=== PATIENT | male | born 1995 | race Caucasian/White ===

== ENCOUNTER 2018-09-11 12:31 | Emergency (ER) | payer BC ==
[2018-09-11] MEDS ORDERED: TORAdol 30 mg Injection IV ONE (12:43)
--- NOTE | 2018-09-11 12:48 | ERPHSYRPT ---
- History of Present Illness Time Seen by Provider: 09/11/18 12:35 Historian: patient Exam Limitations: no limitations Patient Subjective Stated Complaint: PT HERE FOR COUGH FOR 3 DAYS, NO FEVER, AND PAIN TO RIGHT RIB AREA THAT IS WORSE WITH MOVEMENT OR COUGH,PRODUCTIVE YELLOW Triage Nursing Assessment: PT ALERT, WALKED IN, RESP EASY, NO DISTRESS, ABD SOFT Physician History: Pt has been c/o congestion, productive cough x 3 weeks, developed left sided chest pain this morning, denies fever, chills, nausea, vomiting, diarrhea, sore throat other complaints. Timing/Duration: hour(s) (4) Activities at Onset: none Quality: sharpness Location: other (left anterior chest) Chest Pain Radiation: no radiation Severity of Pain-Max: moderate Severity of Pain-Current: moderate Modifying Factors: Improves With: nothing Associated Symptoms: cough Prior Chest Pain/Cardiac Workup: no prior chest pain Nitro Today/Relief: no nitro taken today Aspirin Treatment Today: no aspirin today Allergies/Adverse Reactions: No Known Drug Allergies Allergy (Unverified 09/11/18 12:38) Hx Influenza Vaccination/Date Given: No Hx Pneumococcal Vaccination/Date Given: No Immunizations Up to Date: Yes - Review of Systems Constitutional: No Symptoms Eyes: No Symptoms Ears, Nose, & Throat: No Symptoms Respiratory: Cough Cardiac: Chest Pain Abdominal/Gastrointestinal: No Symptoms Musculoskeletal: No Symptoms Skin: No Symptoms Neurological: No Symptoms All Other Systems: Reviewed and Negative - Past Medical History Pertinent Past Medical History: No - Past Surgical History Past Surgical History: Yes Other Surgical History: THUMB SURGERT - Social History Smoking Status: Current every day smoker Exposure to second hand smoke: Yes Drug Use: none Patient Lives Alone: No - Nursing Vital Signs Nursing Vital Signs: Initial Vital Signs Temperature 98.7 F 09/11/18 12:33 Pulse Rate 89 09/11/18 12:33 Respiratory Rate 83 H 09/11/18 12:33 Blood Pressure 133/79 09/11/18 12:33 O2 Sat by Pulse Oximetry 100 09/11/18 12:33 Pain Scale Pain Intensity 5 - Physical Exam General Appearance: no apparent distress Eye Exam: eyes nml inspection Ears, Nose, Throat Exam: normal ENT inspection, pharynx normal, moist mucous membranes Neck Exam: normal inspection, non-tender, supple, No JVD Respiratory Exam: normal breath sounds, lungs clear, airway intact, No chest tenderness Cardiovascular Exam: regular rate/rhythm, normal heart sounds, normal peripheral pulses, No murmur Gastrointestinal/Abdomen Exam: soft, normal bowel sounds, No tenderness, No distention, No mass, No guarding, No rebound Back Exam: normal inspection, No CVA tenderness Extremity Exam: normal inspection, No calf tenderness, No linda's sign Neurologic Exam: alert, oriented x 3, normal mood/affect Skin Exam: normal color, warm, dry, No rash Lymphatic Exam: No adenopathy SpO2 Interpretation: normal SpO2: 100 O2 Delivery: Room Air - Course Nursing assessment & vital signs reviewed: Yes EKG Interpreted by Me: RATE (74/min), Right [place] Deviation, NORMAL INTERVALS, Right Bundle Branch Block, Non-specific ST Changes, Other (Ekg(repeat) 14:55 NSR. unchanged.) - Radiology Exams Chest X-ray Interpretation: Reviewed by me, Negative Ordered Tests: Active Orders 24 hr Category Date Time Status EKG-ER Only STAT Care 09/11/18 12:43 Active EKG-ER Only STAT Care 09/11/18 14:47 Active IV Insertion STAT Care 09/11/18 12:41 Active CHEST 2 VIEWS (PA AND LAT) Stat Exams 09/11/18 13:05 Completed CBC W DIFF Stat Lab 09/11/18 12:50 Completed CMP Stat Lab 09/11/18 12:50 Completed D-DIMER QUANTITATION Stat Lab 09/11/18 13:51 Completed MAGNESIUM Stat Lab 09/11/18 12:50 Completed NT PRO BNP Stat Lab 09/11/18 12:50 Completed TROPONIN Q3H Lab 09/11/18 12:50 Completed TROPONIN Q3H Lab 09/11/18 15:00 Completed TROPONIN Q3H Lab 09/11/18 15:00 Ordered TROPONIN Q3H Lab 09/11/18 18:00 Ordered TROPONIN Q3H Lab 09/11/18 18:45 Ordered TROPONIN Q3H Lab 09/11/18 21:00 Ordered TROPONIN Q3H Lab 09/11/18 21:45 Ordered TROPONIN Q3H Lab 09/12/18 00:45 Ordered Urine Triage Profile Stat Lab 09/11/18 13:51 Completed Medication Summary Discontinued Medications Generic Name Dose Route Start Last Admin Trade Name Freq PRN Reason Stop Dose Admin Ketorolac Tromethamine 30 mg 09/11/18 12:43 09/11/18 12:52 Toradol 30 Mg Injection IV 09/11/18 12:44 30 mg STAT ONE Administration Ketorolac Tromethamine Confirm 09/11/18 12:51 Toradol 30 Mg Injection Administered 09/11/18 12:52 Dose 30 mg .ROUTE .STK-MED ONE Lab/Rad Data: Laboratory Result Diagrams 09/11/18 12:50 09/11/18 12:50 Laboratory Results 09/11/18 09/11/18 09/11/18 Range/Units 15:00 13:51 13:51 WBC (4.0-10.5) K/mm3 RBC (4.1-5.6) M/mm3 Hgb (12.5-18.0) gm/dl Hct (42-50) % MCV (78-100) fl MCH (26-32) pg MCHC (32-36) g/dl RDW (11.5-14.0) % Plt Count (150-450) K/mm3 MPV (6-9.5) fl Gran % (36.0-66.0) % Eos # (Auto) (0-0.5) Absolute Lymphs (auto) (1.0-4.6) Absolute Monos (auto) (0.0-1.3) Lymphocytes % (24.0-44.0) % Monocytes % (0.0-12.0) % Eosinophils % (0.00-5.0) % Basophils % (0.0-0.4) % Absolute Granulocytes (1.4-6.9) Basophils # (0-0.4) D-Dimer < 215 L (215-500) ng/mL Sodium (137-145) mmol/L Potassium (3.5-5.1) mmol/L Chloride (98-107) mmol/L Carbon Dioxide (22-30) mmol/L Anion Gap (5-15) MEQ/L BUN (9-20) mg/dL Creatinine (0.66-1.25) mg/dL Estimated GFR ML/MIN Glucose (74-106) mg/dL Calcium (8.4-10.2) mg/dL Magnesium (1.6-2.3) mg/dL Total Bilirubin (0.2-1.3) mg/dL AST (17-59) U/L ALT (0-50) U/L Alkaline Phosphatase (38-126) U/L Troponin I < 0.012 (0.000-0.034) ng/mL NT-Pro-B Natriuret Pep (0-450) pg/mL Serum Total Protein (6.3-8.2) g/dL Albumin (3.5-5.0) g/dL Urine Opiates Level NEGATIVE (NEGATIVE) Ur Methadone NEGATIVE (NEGATIVE) Urine Barbiturates NEGATIVE (NEGATIVE) Ur Phencyclidine (PCP) NEGATIVE (NEGATIVE) Urine Amphetamine NEGATIVE (NEGATIVE) U Benzodiazepine Level NEGATIVE (NEGATIVE) Urine Cocaine NEGATIVE (NEGATIVE) Urine Marijuana (THC) NEGATIVE (NEGATIVE) 09/11/18 09/11/18 09/11/18 Range/Units 12:50 12:50 12:50 WBC 8.9 (4.0-10.5) K/mm3 RBC 5.07 (4.1-5.6) M/mm3 Hgb 15.2 (12.5-18.0) gm/dl Hct 44.9 (42-50) % MCV 88.6 (78-100) fl MCH 30.0 (26-32) pg MCHC 33.9 (32-36) g/dl RDW 13.1 (11.5-14.0) % Plt Count 216 (150-450) K/mm3 MPV 12.0 H (6-9.5) fl Gran % 69.0 H (36.0-66.0) % Eos # (Auto) 0.06 (0-0.5) Absolute Lymphs (auto) 1.95 (1.0-4.6) Absolute Monos (auto) 0.73 (0.0-1.3) Lymphocytes % 21.9 L (24.0-44.0) % Monocytes % 8.2 (0.0-12.0) % Eosinophils % 0.7 (0.00-5.0) % Basophils % 0.2 (0.0-0.4) % Absolute Granulocytes 6.13 (1.4-6.9) Basophils # 0.02 (0-0.4) D-Dimer (215-500) ng/mL Sodium 140 (137-145) mmol/L Potassium 4.0 (3.5-5.1) mmol/L Chloride 103 (98-107) mmol/L Carbon Dioxide 28 (22-30) mmol/L Anion Gap 12.9 (5-15) MEQ/L BUN 11 (9-20) mg/dL Creatinine 0.91 (0.66-1.25) mg/dL Estimated GFR > 60.0 ML/MIN Glucose 72 L (74-106) mg/dL Calcium 9.6 (8.4-10.2) mg/dL Magnesium 2.0 (1.6-2.3) mg/dL Total Bilirubin 0.70 (0.2-1.3) mg/dL AST 26 (17-59) U/L ALT 23 (0-50) U/L Alkaline Phosphatase 81 (38-126) U/L Troponin I < 0.012 (0.000-0.034) ng/mL NT-Pro-B Natriuret Pep 20.1 (0-450) pg/mL Serum Total Protein 7.7 (6.3-8.2) g/dL Albumin 4.6 (3.5-5.0) g/dL Urine Opiates Level (NEGATIVE) Ur Methadone (NEGATIVE) Urine Barbiturates (NEGATIVE) Ur Phencyclidine (PCP) (NEGATIVE) Urine Amphetamine (NEGATIVE) U Benzodiazepine Level (NEGATIVE) Urine Cocaine (NEGATIVE) Urine Marijuana (THC) (NEGATIVE) - Progress Progress: improved Air Movement: good Progress Note: 09/11/18 15:10 Pt states, pain is almost completely resolved after Toradol, painful only upon movement of the shoulder or applying pressure to the left parasternal area. We discussed his findings, cardiac pain unlikely, he is being discharged to rest x 1-2 days, and apply moist heat to painfulm ribs and follow up with his physician in 3-4 days. Blood Culture(s) Obtained: No Antibiotics given: No Counseled pt/family regarding: lab results, diagnosis, need for follow-up, rad results - Departure Departure Disposition: Home Clinical Impression: Chest pain Qualifiers: Chest pain type: unspecified Qualified Code(s): R07.9 - Chest pain, unspecified Condition: Stable Critical Care Time: No Referrals: DOCTOR,NO FAMILY [Primary Care Provider] - Instructions: Costochondritis, Cough, Adult (DC), Pleuritic Chest Pain (DC) Additional Instructions: Rest x 2-3 days, apply moist heat to painful area, and follow up with your physician in 3-4 days, return if severe pain, shortness of breath, severe wheezing, vomiting, fever> 102 F! Prescriptions: Tramadol HCl 50 mg [Ultram 50 mg] 50 mg PO Q6H PRN #10 tablet PRN Reason: Pain
[2018-09-11] MEDS ORDERED: TORAdol 30 mg Injection ONE (12:51)
[2018-09-11 13:07] LABS: BASOPHIL % 0.2 % (0.0-0.4); Basophil (Absolute #) 0.02 (0-0.4); Eosinophil % 0.7 % (0.00-5.0); Eosinophil (Absolute #) 0.06 (0-0.5); Granulocyte Absolute (ANC) 6.13 (1.4-6.9); Hematocrit 44.9 % (42-50); Hemoglobin 15.2 gm/dl (12.5-18.0); Lymphocyte (Absolute #) 1.95 (1.0-4.6); Lymphocytes % 21.9 % (24.0-44.0); Mean Cell Volume 88.6 fl (78-100); Mean Corpuscular Hgb Concent. 33.9 g/dl (32-36); Monocyte (Absolute #) 0.73 (0.0-1.3); Monocytes % 8.2 % (0.0-12.0); Platelet Count 216 K/mm3 (150-450); Red Blood Count 5.07 M/mm3 (4.1-5.6); Red Cell Distribution Width 13.1 % (11.5-14.0); White Blood Count 8.9 K/mm3 (4.0-10.5)
[2018-09-11 13:19] LABS: ALBUMIN 4.6 g/dL (3.5-5.0); ALKALINE PHOSPHATASE 81 U/L (38-126); ANION GAP 12.9 MEQ/L (5-15); BLOOD UREA NITROGEN 11 mg/dL (9-20); CHLORIDE 103 mmol/L (98-107); Calcium 9.6 mg/dL (8.4-10.2); Carbon Dioxide 28 mmol/L (22-30); Creatinine 1 0.91 mg/dL (0.66-1.25); Glucose 72 mg/dL (74-106); NT PRO BNP 20.1 pg/mL (0-450); SGOT/AST 26 U/L (17-59); SGPT/ALT 23 U/L (0-50); SODIUM 140 mmol/L (137-145); Total Protein 7.7 g/dL (6.3-8.2)
--- NOTE | 2018-09-11 13:19 | XRAY ---
Indication: Cough and chest pain. Comparison: None PA/lateral chest demonstrates normal heart, lungs, and bony thorax.
[2018-09-11 14:10] LABS: Amphetamine,Urine NEGATIVE (NEGATIVE); Barbiturate,Urine NEGATIVE (NEGATIVE); Benzodiazepine,Urine NEGATIVE (NEGATIVE); Cocaine,Urine NEGATIVE (NEGATIVE); Methadone,Urine NEGATIVE (NEGATIVE); Opiate,Urine NEGATIVE (NEGATIVE); PCP,Urine NEGATIVE (NEGATIVE); THC,Urine NEGATIVE (NEGATIVE)
[2018-09-11 15:02] VITALS: O2SAT 100
[2018-09-11 15:12] VITALS: PULSE 76
[2018-09-11 15:59] VITALS: BP 114/64
== END 2018-09-11 16:00 | disposition home or self-care (01) ==
LOC: ED 12:31
DX: R07.9 Chest pain, unspecified (principal)
CPT/HCPCS: 36415; 71046; 80053; 80307; 83735; 83880; 84484; 85025; 85379; 93005; 96374; 99284; J1885